=== PATIENT | female | born 1960 | race Caucasian/White ===

== ENCOUNTER 2020-07-14 13:17 | Outpatient (REF) | payer MEDICAID, SELFPAY ==
[2020-07-14 16:39] LABS: MANUAL DIFF FLAG NO
[2020-07-14 16:41] LABS: Basophils Absolute Auto 0.1 X10*3/uL (0.0-0.2); Basophils Percent Auto 0.8 % (0-2); Eosinophils Absolute Auto 0.1 X10*3/uL (0.0-0.4); Eosinophils Percent Auto 1.2 % (0-4); Hematocrit 46.3 % (37-47); Hemoglobin 14.9 g/dl (12.0-16.0); Imm Gran Abs Auto 0.02 X10*3/uL (0.00-0.03); Imm Gran Pct Auto 0.3 % (0.0-0.4); Lymphocytes Absolute Auto 1.7 X10*3/uL (1.2-4.9); Lymphocytes Percent Auto 28.3 % (20-40); Mean Corpuscular HGB Conc 32.2 g/dl (31.0-35.0); Mean Corpuscular Hemoglobin 30.5 pg (27.0-33.0); Mean Corpuscular Volume 94.9 fL (80-98); Mean Platelet Volume 9.5 fL (9.4-12.3); Monocytes Absolute Auto 0.5 X10*3/uL (0.1-1.2); Monocytes Percent Auto 8.8 % (2-11); Neutrophils Absolute Auto 3.6 X10*3/uL (2.0-8.3); Neutrophils Percent Auto 60.6 % (45-73); Platelet Count 305 X10*3/uL (160-400); Red Blood Count 4.88 X10*6/uL (4.20-5.50); Red Cell Distribution Width 12.4 % (11.0-16.0)
[2020-07-14 17:08] LABS: Alanine Aminotransferase 14 U/L (0-31); Albumin Level 4.3 g/dL (3.5-5.0); Alkaline Phosphatase 69 U/L (39-117); Anion Gap 12 (12-20); Aspartate Amino Transferase 16 U/L (5-31); Bilirubin Total 0.4 mg/dL (0.0-1.0); Blood Urea Nitrogen 14 mg/dL (9-16); Carbon Dioxide 34 mmol/L (22-29); Chloride 100 mmol/L (96-108); Cholesterol 230 mg/dL; Estimated Glomerular Filt Rate > 60; Glucose Fasting 87 mg/dL (60-99); HDL Cholesterol 64 mg/dL; LDL Cholesterol Calculated 147 mg/dl; Potassium 4.2 mmol/l (3.3-5.1); Sodium 142 mmol/L (135-145); Total Protein 6.5 g/dL (6.5-8.0); Triglycerides 95 mg/dL
== END 2020-07-14 13:18 | disposition home or self-care (01) ==
LOC: HO.HMGCLDS 13:17
PROVIDERS: PCP Internal Medicine; Visit Provider Internal Medicine
DX: E78.00 Pure hypercholesterolemia, unspecified (principal); F31.9 Bipolar disorder, unspecified
CPT/HCPCS: 36415; 80053; 80061; 85025

== ENCOUNTER 2020-08-14 08:05 | Day surgery (SDC) | payer MEDICAID, SELFPAY ==
[2020-08-01 18:57] VITALS: BMI 20.5
--- NOTE | 2020-08-07 14:24 | HO.ANESPROP2 ---
Documented by User: Emerita Abreu 08/07/20 14:25 HPI - Anesthesia Eval Consult details Narrative: 60yo F for Colonoscopy PMFSH Past Medical History Medical History Anxiety Bipolar 1 disorder Depression High cholesterol Hx of hepatitis C Hypertension Surgical History Surgical History History of History of cholecystectomy Hx of left breast biopsy Social History Social History Smoking Status: Current every day smoker Packs Per Day: 0.5 Cigarettes Per Day: 10.0 Years Smoked: 30 Smoked in Last 30 Days: Yes Patient Given Instructions on How to Stop Smoking: Yes Date Education Initiated: 08/01/20 Second Hand Smoke Exposure: No Use of substances other than those prescribed or required for medical reasons: No Substance Use Type Other:: HX METHADONE-2 YEARS OFF Advance Directives: No Advance Directives Information Provided: No Advance Directives on File: No Recently lost weight without trying: No Meds Allergies Allergy/AdvReac Type Severity Reaction Status Date / Time codeine [CODEINE] Allergy Intermediate HIVES Verified 08/14/20 08:16 Home Medications Medication Instructions Recorded Confirmed Type atorvastatin 80 mg PO BEDTIME 08/02/20 08/02/20 History fluoxetine 60 mg PO DAILY 08/02/20 08/02/20 History ibuprofen 600 mg PO Q6H PRN 08/02/20 08/02/20 History nicotine 1 patch TRANSDERMAL Q24H 08/02/20 08/02/20 History prazosin 1 mg PO BEDTIME 08/02/20 08/02/20 History quetiapine 200 mg PO BEDTIME 08/02/20 08/02/20 History Exam Exam Date and Time: August 07, 2020 1424 Height,Weight and Vital Signs: Height 5 ft 2 in Weight 50.802 kg Pertinent Lab Results Pertinent Lab Results: Laboratory Tests 07/14/20 07/14/20 13:30 13:30 WBC 6.0 Hgb 14.9 Hct 46.3 Plt Count 305 Sodium 142 Potassium 4.2 Chloride 100 Carbon Dioxide 34 H BUN 14 Creatinine 0.74 Assessment and Plan Assessment Anesthesia Assessment: Chart Reviewed Documented by User: Charlie Colin 08/14/20 09:03 PMFSH Past Medical History Medical History Anxiety Bipolar 1 disorder Depression High cholesterol Hx of hepatitis C Hypertension Surgical History Surgical History History of History of cholecystectomy Hx of left breast biopsy Social History Social History Smoking Status: Current every day smoker Packs Per Day: 0.5 Cigarettes Per Day: 10.0 Years Smoked: 30 Smoked in Last 30 Days: Yes Patient Given Instructions on How to Stop Smoking: Yes Date Education Initiated: 08/01/20 Second Hand Smoke Exposure: No Use of substances other than those prescribed or required for medical reasons: No Substance Use Type Other:: HX METHADONE-2 YEARS OFF Advance Directives: No Advance Directives Information Provided: No Advance Directives on File: No Recently lost weight without trying: No Meds Allergies Allergy/AdvReac Type Severity Reaction Status Date / Time codeine [CODEINE] Allergy Intermediate HIVES Verified 08/14/20 08:16 Home Medications Medication Instructions Recorded Confirmed Type atorvastatin 80 mg PO BEDTIME 08/02/20 08/02/20 History fluoxetine 60 mg PO DAILY 08/02/20 08/02/20 History ibuprofen 600 mg PO Q6H PRN 08/02/20 08/02/20 History nicotine 1 patch TRANSDERMAL Q24H 08/02/20 08/02/20 History prazosin 1 mg PO BEDTIME 08/02/20 08/02/20 History quetiapine 200 mg PO BEDTIME 08/02/20 08/02/20 History
[2020-08-14 08:19] VITALS: BP 131/90; PULSE 79; RESP 18; TEMP 36.6; O2SAT 96
[2020-08-14] MEDS: Lactated Ringers 1,000 ML 100 ML IVCONT (08:36)
--- NOTE | 2020-08-14 09:17 | HO.ANESPROP2 ---
[facility] Past Medical History Medical History Anxiety Bipolar 1 disorder Depression High cholesterol Hx of hepatitis C Hypertension Surgical History Surgical History History of History of cholecystectomy Hx of left breast biopsy Social History Social History Smoking Status: Current every day smoker Packs Per Day: 0.5 Cigarettes Per Day: 10.0 Years Smoked: 30 Smoked in Last 30 Days: Yes Patient Given Instructions on How to Stop Smoking: Yes Date Education Initiated: 08/01/20 Second Hand Smoke Exposure: No Use of substances other than those prescribed or required for medical reasons: No Substance Use Type Other:: HX METHADONE-2 YEARS OFF Advance Directives: No Advance Directives Information Provided: No Advance Directives on File: No Recently lost weight without trying: No Meds Allergies Allergy/AdvReac Type Severity Reaction Status Date / Time codeine [CODEINE] Allergy Intermediate HIVES Verified 08/14/20 08:16 Home Medications Medication Instructions Recorded Confirmed Type atorvastatin 80 mg PO BEDTIME 08/02/20 08/02/20 History fluoxetine 60 mg PO DAILY 08/02/20 08/02/20 History ibuprofen 600 mg PO Q6H PRN 08/02/20 08/02/20 History nicotine 1 patch TRANSDERMAL Q24H 08/02/20 08/02/20 History prazosin 1 mg PO BEDTIME 08/02/20 08/02/20 History quetiapine 200 mg PO BEDTIME 08/02/20 08/02/20 History Exam Exam Date and Time: August 14, 2020 0917 Height,Weight and Vital Signs: Height 5 ft 2 in Weight 50.802 kg Last Vital Signs Temp 97.8 F 08/14/20 08:19 Pulse 79 08/14/20 08:19 Resp 18 08/14/20 08:19 BP 131/90 H 08/14/20 08:19 Pulse Ox 96 08/14/20 08:19 Airway Mallampati Class: III Neck ROM: Full Denture: Upper and Lower Heart: [id number] Lungs: ct b/l Assessment and Plan Assessment Anesthesia Assessment: Anesthesia Plan Discussed and Chart Reviewed Final Anesthetic Review NPO: Yes ASA Class: III Final Preanesthetic Review: No Changes in Pt Med Stat, Meds/Allgs Chart Reviewed, Consent Obtained/Reviewed and Anes Risks/Benef Reviewed Patient Risk: Low Procedure Risk: Low Assessment/Block/Sedation in SS: Assess/Block/Sedation-SS Anesthetic Plan Anesthetic Plan: MAC: Disposition: Standard PACU
[2020-08-14 10:15] VITALS: BP 105/72; PULSE 71; RESP 16; TEMP 36.1; O2SAT 99
--- NOTE | 2020-08-14 10:16 | PM.OP ---
Brief Operative Note Date of Service: 08/14/20 Pre-op diagnosis: Screening Post-op diagnosis: other (Colon polyp) Procedure: Colonoscopy to cecum and TI with biopsy and removal of polyp Surgeon: Pritesh Sweet Anesthesia: MAC Estimated blood loss (mL): 2.0 Pathology: other (A. Rectal polyp) Condition: stable Disposition: PACU
[2020-08-14 10:31] VITALS: BP 155/87; PULSE 61; RESP 16; TEMP 36.1; O2SAT 99
--- NOTE | 2020-08-14 10:56 | HO.POSTANES ---
Post Anesthesia Evaluation Post Anesthesia Evaluation Vital Signs: Vital Signs Temp Pulse Resp BP Pulse Ox 08/14/20 10:31 97 F 61 16 155/87 H 99 08/14/20 10:15 97 F 71 16 105/72 99 08/14/20 08:19 97.8 F 79 18 131/90 H 96 Anesthesia: Monitored Mental Status: Awake Pain Control: Satisfactory Nausea/Vomiting: None Hydration: Adequate Anesthesia-Related Issues: No Anes. Related Issues
--- NOTE | 2020-08-14 11:14 | OP_ITS ---
SURGEON: Pritesh Sweet MD INDICATIONS: The patient presents for evaluation of colorectal cancer screening. Full consent has been obtained from her for this, including risks of bleeding and perforation. PREOPERATIVE DIAGNOSIS: Colorectal cancer screening. POSTOPERATIVE DIAGNOSIS: PROCEDURE PERFORMED: Colonoscopy to cecum and terminal ileum with biopsy and removal of polyp. ESTIMATED BLOOD LOSS: COMPLICATIONS: ANESTHESIA: Monitored anesthesia care. ASSISTANTS: SPECIMENS: POSTOPERATIVE DIAGNOSES: Colorectal cancer screening, small rectal polyp, diverticulosis and internal hemorrhoids. DESCRIPTION OF PROCEDURE: The patient was placed in the left lateral decubitus position. The digital rectal exam revealed no abnormalities. The Olympus video pediatric colonoscope was entered into the rectum, advanced easily to the cecum. Once in the cecum, I identified normal-appearing cecal pouch with appendiceal orifice and a normal-appearing ileocecal valve. The terminal ileum was cannulated and appeared normal. The scope was withdrawn back in the colon. The entire cecum and ileocecal valve appeared normal. Scope was then slowly withdrawn assessing all mucosal surfaces carefully. Preparation was excellent. There was a mild amount of sigmoid diverticulosis. I did not visualize any sign of colitis nor angiodysplasia. The only polyp I visualized was a small approximately 4 mm polyp in the rectum, which was biopsied and completely removed with cold biopsy forceps. The scope was retroflexed visualizing small internal hemorrhoids, but no other pathology. The rectal mucosa otherwise appeared normal. The scope was straightened and withdrawn from the patient. She tolerated the procedure well and was returned to recovery area in stable condition. IMPRESSION: 1. Small rectal polyp, status post biopsy removal. 2. Diverticulosis. 3. Internal hemorrhoids. PLAN: The results of the pathology will be checked. If this is a tubular adenoma, I would recommend a followup colonoscopy in 5 years. If it is only hyperplastic, I would recommend a followup colonoscopy in 10 years. She will otherwise see me on a p.r.n. basis. Of note, recent laboratories again showed a nondetectable hepatitis C viral load, normal LFTs, and a normal ultrasound of the liver. This has been discussed with her family. MD ROBERT Hall/MICHELLE / [id number]
== END 2020-08-14 11:20 | disposition home or self-care (01) ==
PROVIDERS: PCP Internal Medicine; Visit Provider Internal Medicine
PROC: 0DJD8ZZ Inspection of Lower Intestinal Tract, Via Natural or Artificial Opening Endoscopic (ICD-10-PCS; CPT 45378; principal; 2020-08-14 09:30)
DX: Z12.11 Encounter for screening for malignant neoplasm of colon (principal); D12.8 Benign neoplasm of rectum; K57.30 Diverticulosis of large intestine without perforation or abscess without bleeding; K64.8 Other hemorrhoids; I10 Essential (primary) hypertension; F31.9 Bipolar disorder, unspecified; R76.8 Other specified abnormal immunological findings in serum; Z86.19 Personal history of other infectious and parasitic diseases; F17.210 Nicotine dependence, cigarettes, uncomplicated; Z90.49 Acquired absence of other specified parts of digestive tract; Z79.899 Other long term (current) drug therapy; Z88.8 Allergy status to other drugs, medicaments and biological substances
CPT/HCPCS: 45380; 88305

== ENCOUNTER 2020-08-19 08:04 | Outpatient (REF) | payer MEDICAID, SELFPAY ==
--- NOTE | 2020-08-19 08:08 | MM_ITS ---
EXAMINATION: MM SCREENING DIGITAL BREAST TOMOSYNTHESIS, BILATERAL CLINICAL INFORMATION: Screening. Asymptomatic. The lifetime risk of breast cancer based on the Tyrer-Cuzick Model is 15%. COMPARISON: Mammography: 03/15/2019, 06/04/2018, 06/01/2018, 04/27/2018 TECHNIQUE: Digital breast tomosynthesis is performed in both the craniocaudal and mediolateral oblique views along with computer-aided detection (CAD). Synthesized 2D images are generated from the tomosynthesis. FINDINGS: The breasts are heterogeneously dense, which may obscure small masses (ACR BI-RADS breast composition Category c). There is no significant mass or architectural abnormality. There is biopsy clip marker again seen anterior upper outer left breast. There are no interval suspicious calcifications on either side. The axilla and skin contours are unremarkable. MM/MM tomosynthesis screening BI IMPRESSION: No mammographic evidence of malignancy. ASSESSMENT: BI-RADS 2: Benign RECOMMENDATION: Routine annual mammography screening. This patient's information was entered into a reminder system with a target due date for their next mammogram.
== END 2020-08-19 08:05 | disposition home or self-care (01) ==
LOC: HO.MAMMO 08:04
PROVIDERS: PCP Internal Medicine; Visit Provider Internal Medicine
DX: Z12.31 Encounter for screening mammogram for malignant neoplasm of breast (principal)
CPT/HCPCS: 77063; 77067

== ENCOUNTER 2022-09-04 13:26 | Outpatient (REF) | payer MEDICAID, SELFPAY ==
[2022-09-04 13:38] LABS: MANUAL DIFF FLAG NO
[2022-09-04 14:11] LABS: Basophils Percent Auto 0.7 % (0-2); Eosinophils Absolute Auto 0.1 X10*3/uL (0.0-0.4); Eosinophils Percent Auto 1.4 % (0-4); Hematocrit 49.9 % (37.0-47.0); Hemoglobin 16.2 g/dl (12.0-16.0); Imm Gran Abs Auto 0.01 X10*3/uL (0.00-0.03); Imm Gran Pct Auto 0.2 % (0.0-0.4); Lymphocytes Absolute Auto 1.8 X10*3/uL (1.2-4.9); Lymphocytes Percent Auto 31.8 % (20-40); Mean Corpuscular HGB Conc 32.5 g/dl (31.0-35.0); Mean Corpuscular Volume 95.4 fL (80.0-98.0); Mean Platelet Volume 9.3 fL (9.4-12.3); Monocytes Absolute Auto 0.6 X10*3/uL (0.1-1.2); Monocytes Percent Auto 11.2 % (2-11); Neutrophils Absolute Auto 3.1 x10*3/uL (2.0-8.3); Neutrophils Percent Auto 54.7 % (45-73); Platelet Count 291 X10*3/uL (160-400); Red Blood Count 5.23 X10*6/uL (4.20-5.50); Red Cell Distribution Width 12.2 % (11.0-16.0); White Blood Count 5.7 X10*3/uL (4.8-10.8)
[2022-09-04 14:51] LABS: Alanine Aminotransferase 11 U/L (0-31); Albumin Level 4.3 g/dL (3.5-5.0); Alkaline Phosphatase 74 U/L (39-117); Anion Gap 15 (12-20); Aspartate Amino Transferase 20 U/L (5-31); Bilirubin Total 0.4 mg/dL (0.0-1.0); Blood Urea Nitrogen 17 mg/dL (9-16); Calcium 9.2 mg/dL (8.4-10.2); Carbon Dioxide 30 mmol/L (22-29); Chloride 101 mmol/L (96-108); Cholesterol 237 mg/dL; Estimated Glomerular Filt Rate > 60; Glucose Random 84 mg/dL (60-115); HDL Cholesterol 63 mg/dL; LDL Cholesterol Calculated 145 mg/dl; Potassium 4.7 mmol/L (3.3-5.1); Sodium 141 mmol/L (135-145); Total Protein 6.6 g/dL (6.5-8.0); Triglycerides 145 mg/dL
[2022-09-06 07:18] LABS: HCV Log PCR <1.18 NOT DETECTED Log IU/mL (NOT DETECTED); HepC Viral Load <15 NOT DETECTED IU/mL (NOT DETECTED)
== END 2022-09-04 13:27 | disposition home or self-care (01) ==
LOC: HO.LAB 13:26
PROVIDERS: Visit Provider Internal Medicine
DX: Z00.00 Encounter for general adult medical examination without abnormal findings (principal); B18.2 Chronic viral hepatitis C; E78.00 Pure hypercholesterolemia, unspecified; F31.9 Bipolar disorder, unspecified; J30.89 Other allergic rhinitis
CPT/HCPCS: 36415; 80053; 80061; 85025; 87522

== ENCOUNTER 2022-10-05 08:09 | Outpatient (REF) | payer MEDICAID, SELFPAY ==
--- NOTE | ~2022-10-05 | MM_ITS ---
EXAMINATION: MM SCREENING DIGITAL BREAST TOMOSYNTHESIS, BILATERAL CLINICAL INFORMATION: Screening. Asymptomatic. Family history breast cancer, mother. The lifetime risk of breast cancer based on the Tyrer-Cuzick Model is 14%. COMPARISON: Mammography: 08/19/2020, 03/15/2019, 06/04/2018, 06/01/2018, 04/27/2018 TECHNIQUE: Digital breast tomosynthesis is performed in both the craniocaudal and mediolateral oblique views along with computer-aided detection (CAD). Synthesized 2D images are generated from the tomosynthesis. FINDINGS: The breasts are heterogeneously dense, which may obscure small masses (ACR BI-RADS breast composition Category c). There are no significant masses, abnormal calcifications, or other abnormalities. No architectural abnormality or developing density or significant change from prior studies. Biopsy clip marker again noted anterior upper outer left breast. The axilla are unremarkable. MM/MM tomosynthesis screening BI IMPRESSION: No mammographic evidence of malignancy. ASSESSMENT: BI-RADS 1: Negative RECOMMENDATION: Routine annual mammography screening. This patient's information was entered into a reminder system with a target due date for their next mammogram.
== END 2022-10-05 08:10 | disposition home or self-care (01) ==
LOC: HO.MAMMO 08:09
PROVIDERS: PCP Internal Medicine; Visit Provider Internal Medicine
DX: Z12.31 Encounter for screening mammogram for malignant neoplasm of breast (principal)
CPT/HCPCS: 77063; 77067

== ENCOUNTER 2023-11-24 10:27 | Outpatient (REF) | payer MEDICAID, SELFPAY ==
[2023-11-24 10:45] LABS: MANUAL DIFF FLAG NO
[2023-11-24 11:29] LABS: Basophils Percent Auto 0.6 % (0-2); Eosinophils Absolute Auto 0.1 X10*3/uL (0.0-0.4); Eosinophils Percent Auto 1.7 % (0-4); Hematocrit 48.1 % (37.0-47.0); Hemoglobin 15.5 g/dl (12.0-16.0); Imm Gran Abs Auto 0.02 X10*3/uL (0.00-0.03); Imm Gran Pct Auto 0.4 % (0.0-0.4); Lymphocytes Absolute Auto 1.2 X10*3/uL (1.2-4.9); Mean Corpuscular HGB Conc 32.2 g/dl (31.0-35.0); Mean Corpuscular Hemoglobin 30.9 pg (27.0-33.0); Mean Corpuscular Volume 95.8 fL (80.0-98.0); Mean Platelet Volume 8.9 fL (9.4-12.3); Monocytes Absolute Auto 0.4 X10*3/uL (0.1-1.2); Monocytes Percent Auto 8.9 % (2-11); Neutrophils Absolute Auto 3.1 x10*3/uL (2.0-8.3); Neutrophils Percent Auto 63.4 % (45-73); Platelet Count 268 X10*3/uL (160-400); Red Blood Count 5.02 X10*6/uL (4.20-5.50); Red Cell Distribution Width 12.4 % (11.0-16.0); White Blood Count 4.8 X10*3/uL (4.8-10.8)
[2023-11-24 12:26] LABS: Alanine Aminotransferase 12 U/L (0-31); Alkaline Phosphatase 69 U/L (39-117); Anion Gap 11 (12-20); Aspartate Amino Transferase 12 U/L (5-31); Bilirubin Total 0.3 mg/dL (0.0-1.0); Blood Urea Nitrogen 11 mg/dL (9-16); Calcium 9.1 mg/dL (8.4-10.2); Carbon Dioxide 33 mmol/L (22-29); Chloride 102 mmol/L (96-108); Cholesterol 243 mg/dL (<200); Estimated Glomerular Filt Rate > 60; HDL Cholesterol 70 mg/dL (>40); LDL Cholesterol Calculated 151 mg/dL (<100); Sodium 142 mmol/L (135-145); Total Protein 6.5 g/dL (6.5-8.0); Triglycerides 111 mg/dL (<150)
[2023-11-24 12:35] LABS: Thyroid Stimulating Hormone 0.99 uIU/mL (0.32-4.0)
[2023-11-24 12:57] LABS: Glucose Random 50 mg/dL (60-115)
== END 2023-11-24 10:28 | disposition home or self-care (01) ==
LOC: HO.LAB 10:27
PROVIDERS: PCP Internal Medicine; Visit Provider Internal Medicine
DX: Z00.00 Encounter for general adult medical examination without abnormal findings (principal); E78.00 Pure hypercholesterolemia, unspecified; F31.9 Bipolar disorder, unspecified; H81.11 Benign paroxysmal vertigo, right ear; I10 Essential (primary) hypertension; Z72.0 Tobacco use
CPT/HCPCS: 36415; 80053; 80061; 84443; 85025

== ENCOUNTER 2024-03-30 10:39 | Outpatient (REF) | payer MEDICAID, SELFPAY ==
[2024-03-30 13:04] LABS: MANUAL DIFF FLAG NO
[2024-03-30 13:11] LABS: Basophils Absolute Auto 0.1 X10*3/uL (0.0-0.2); Basophils Percent Auto 1.2 % (0-2); Eosinophils Percent Auto 0.9 % (0-4); Hematocrit 49.2 % (37.0-47.0); Hemoglobin 15.8 g/dl (12.0-16.0); Imm Gran Abs Auto 0.01 X10*3/uL (0.00-0.03); Imm Gran Pct Auto 0.2 % (0.0-0.4); Lymphocytes Absolute Auto 1.3 X10*3/uL (1.2-4.9); Lymphocytes Percent Auto 29.7 % (20-40); Mean Corpuscular HGB Conc 32.1 g/dl (31.0-35.0); Mean Corpuscular Hemoglobin 30.7 pg (27.0-33.0); Mean Corpuscular Volume 95.7 fL (80.0-98.0); Mean Platelet Volume 8.7 fL (9.4-12.3); Monocytes Absolute Auto 0.4 X10*3/uL (0.1-1.2); Monocytes Percent Auto 9.3 % (2-11); Neutrophils Absolute Auto 2.5 x10*3/uL (2.0-8.3); Neutrophils Percent Auto 58.7 % (45-73); Platelet Count 226 X10*3/uL (160-400); Red Blood Count 5.14 X10*6/uL (4.20-5.50); Red Cell Distribution Width 12.7 % (11.0-16.0); White Blood Count 4.3 X10*3/uL (4.8-10.8)
[2024-03-30 13:18] LABS: INTERNATIONAL NORM RATIO 0.9 (0.9-1.1); Prothrombin Time 10.8 SEC (11.1-13.3)
[2024-03-30 13:36] LABS: Alanine Aminotransferase 15 U/L (0-31); Albumin Level 4.2 g/dL (3.5-5.0); Alkaline Phosphatase 59 U/L (39-117); Aspartate Amino Transferase 18 U/L (5-31); Bilirubin Direct 0.1 mg/dL (0.0-0.5); Bilirubin Total 0.4 mg/dL (0.0-1.0); Total Protein 6.7 g/dL (6.5-8.0)
[2024-03-31 10:52] LABS: Immunoglobulin A 186 mg/dL (70-320)
[2024-03-31 20:53] LABS: Gliadin Deamidated IgA Ab <1.0 U/mL; Gliadin Deamidated IgG Ab <1.0 U/mL
[2024-04-01 06:48] LABS: Transglutaminase Ab IgG <1.0 U/mL; Transglutaminase IgA <1.0 U/mL
[2024-04-01 12:18] LABS: Alpha Fetoprotein 2.6 ng/mL
[2024-04-02 10:28] LABS: HCV Log PCR <1.18 NOT DETECTED Log IU/mL (NOT DETECTED); HepC Viral Load <15 NOT DETECTED IU/mL (NOT DETECTED)
[2024-04-07 01:24] LABS: FIB-ALT 14 U/L (6-29); FIB-Alpha-2-Macroglobulin 363 mg/dL (106-279); FIB-Apolipoprotein A1 186 mg/dL (101-198); FIB-GGT 9 U/L (3-65); FIB-Haptoglobin 140 mg/dL (43-212); FIB-Total Bilirubin 0.4 mg/dL (0.2-1.2); Liver Fibrosis Score 0.22; Liver Fibrosis Stage F0-F1; Nec Inflam Act Grade A0; Nec Inflam Act Score 0.04
[2024-04-11 14:34] LABS: Endomysial IgA Antibody Negative (Negative)
== END 2024-03-30 10:40 | disposition home or self-care (01) ==
LOC: HO.10HDL 10:39
PROVIDERS: Visit Provider Internal Medicine
DX: R63.4 Abnormal weight loss (principal); Z86.19 Personal history of other infectious and parasitic diseases; K52.9 Noninfective gastroenteritis and colitis, unspecified
CPT/HCPCS: 36415; 80076; 81596; 82105; 82784; 85025; 85610; 86231; 86258; 86364; 87522

== ENCOUNTER 2024-12-20 12:01 | Outpatient (REF) | payer MEDICAID, SELFPAY ==
--- OUTSIDE RECORDS SUMMARY | 2024-12-20 12:37 | XMS_ITS ---
Author Organization [facility] Address [address] [place] [address] Care Team Providers Care Mailing Specialist Name Role Phone Katie Flynn Primary Care Provider Unavailab Pritesh Ambrose [phone] REASON FOR VISIT Patient presents today for Hep c Encounters Encounter Location Date Provider Diagnosis [facility] [address] [place] [address] 11/07/2023 Pritesh Sweet Plan Of Treatment No Information Progress Notes * LILIA JOSEPHDOB:1960 (64 yo F)Acc No.[id number]:11/07/2023 Progress Notes Patient:?LILIA JOSEPH Provider:?Pritesh Sweet MD :1960???Age:63 Y???Sex:Female D ate:11/07/2023 Address[address] [id number] Pcp:Katie Flynn Subjective: * Chief Complaints: * ???1. Patient presents today for Hep c. * Medical History:? Objective: * Vitals:? Assessment: Plan: * Treatment: * * The named appointment provid er may or may not be the originator of this progress note, and it is not deemed complete until electronically signed by the appointment provider. Sign off status: Pending * Provider:?Pritesh Sweet MD Date:? 024 Generated for Printi ng/Faxing/eTransmitting on:?12/20/2024 12:37 PM EDT
--- OUTSIDE RECORDS SUMMARY | 2024-12-20 12:37 | XMS_ITS | Patient Health Record ---
Author Organization [facility] Address [address] [place] [address] Care Team Providers Care Powder Worker Name Role Phone Katie Flynn Primary Care Provider Pritesh Ellis Unavailable [phone] Allergies Allergen (clinical drug ingredient) Drug/Non Drug Allergy documented on EMR Reaction Allergy Type Onset Date Status codeine Codeine Sulfate Unknown Drug Allergy A ctive Results Component Value Reference Range Notes Prothrombin Time INR Reviewed date:03/30/2024 01:40:48 PM Interpretation: Performing Lab:[address] [address] Notes/Report: Prothrombin Time 10.8 11.1-13.3 SEC INTERNATIONAL NORM RATIO 0.9 0.9-1.1 INTERNATIONAL NORMALIZED RATIO (INR) REFERENCE RANGES Reference Range For patients not on anticoagulant therapy: 0.9 - 1.1 INR ranges for oral anticoagulant therapy: For prevention and treatment of venous thrombosis and pulmonary embolism: 2.0 - 3.0 For acute myocardial infarction with aspirin therapy: 2.0 - 3.0 For acute myocardial infarction without aspirin therapy: 3.0 - 4.0 For patients with mechanical prosthetic heart valves: 2.5 - 3.5 Complete Blood Count Auto Di ff Reviewed date:03/30/2024 01:42:42 PM Interpretation: Performing Lab:[address] [phone] Notes/Report: White Blood Count 4.3 4.8-10.8 X10*3/uL Red Blood Count 5.14 4.20-5.50 X10*6/uL Hemoglobin 15.8 12.0-16.0 g/dl Hematocrit 49.2 37.0-47.0 % Mean Corpuscular Volume 95.7 80.0-98.0 fL Mean Corpuscular Hemoglobin 30.7 27.0-33.0 pg Mean Corpuscular HGB Conc 32.1 31.0-35.0 g/dl Red Cell Distribution Width 12.7 11.0-16.0 % Platelet Count 226 160-400 X10*3/uL Mean Platelet Volume 8.7 9.4-12.3 fL Neutrophils Percent Auto 58.7 45-73 % Imm Gran Pct Auto 0.2 0.0-0.4 % Lymphocytes Percent Auto 29.7 20-40 % Monocytes Percent Auto 9.3 2-11 % Eosinophils Percent Auto 0.9 0-4 % Basophils Percent Auto 1.2 0-2 % NRBC Pct Auto 0.0 0.0-0.2 /100WBC Neutrophils Absolute Auto 2.5 2.0-8.3 x10*3/u L Imm Gran Abs Auto 0.01 0.00-0.03 X10*3/uL Lymphocytes Absolute Auto 1.3 1.2-4.9 X10*3/u L Monocytes Absolute Auto 0.4 0.1-1.2 X10*3/uL Eosinophils Absolute Auto 0.0 0.0-0.4 X10*3/u L Basophils Absolute Auto 0.1 0.0-0.2 X10*3/uL NRBC Abs Auto 0.000 0.0-0.012 X10*3/uL Liver Panel Reviewed date:03/30/2024 01:41:09 PM Interpretation: Performing Lab:[address] [phone] Notes/Report: Bilirubin Total 0.4 0.0-1.0 mg/dL Bilirubin Direct 0.1 0.0-0.5 mg/dL Aspartate Amino Transferase 18 5-31 U/L Alanine Aminotransferase 15 0-31 U/L Total Protein 6.7 6.5-8.0 g/dL Albumin Level 4.2 3.5-5.0 g/dL Alkaline Phosphatase 59 39-117 U/L Alpha Fetoprotein Reviewed date:04/07/2024 05:16:04 PM Interpretation: Performing Lab:[address] [place] [address] Notes/Report: Alpha Fetoprotein 2.6 Reference Range: <6.1 The use of AFP as a tumor marker in females is not recommended. This test was performed using the [employer] chemiluminescent method. Values obtained from different assay methods cannot be used interchangeably. AFP levels, regardless of value, should not be interpreted as absolute evidence of the presence or absence of disease. THIS TEST WAS PERFORMED AT: [facility] [address] [place] [phone] ALANNAH BURCH MD Liver Fibrosis Pnl Reviewed date:04/07/2024 05:16:11 PM Interpretation: Performing Lab:[address] [phone] Notes/Report: Liver Fibrosis Score 0.22 Liver Fibrosis Stage F0-F1 Liver Fibrosis Interpretation SEE NOTE no fibrosis Fibro Test Score (f) Metavir Score f>=0 and f<=0.21 : F0 (no fibrosis) f>0.21 and f<=0.27 : F0-F1 (no fibrosis) f>0.27 and f<=0.31 : F1 (minimal fibrosis) f>0.31 and f<=0.48 : F1-F2 (minimal fibrosis) f>0.48 and f<=0.58 : F2 (moderate fibrosis) f>0.58 and f<=0.72 : F3 (advanced fibrosis) f>0.72 and f<=0.74 : F3-F4 (advanced fibrosis) f>0.74 and f<=1.00 : F4 (severe fibrosis) Nec Inflam Act Score 0.04 Nec Inflam Act Grade A0 Nec Inflam Act Interpretation SEE NOTE no activity ActiTest Score (a) Metavir Score a>=0 and a<=0.17 : A0 (no activity) a>0.17 and a<=0.29 : A0-A1 (no activity) a>0.29 and a<=0.36 : A1 (minimal activity) a>0.36 and a<=0.52 : A1-A2 (minimal activity) a>0.52 and a<=0.60 : A2 (significant activity) a>0.60 and a<=0.62 : A2-A3 (significant activity) a>0.62 and a<=1.00 : A3 (severe activity) GNA-Ybpjg-3-Macroglobulin 363 106-279 mg/dL FIB-Haptoglobin 140 43-212 mg/dL FIB-Apolipoprotein A1 186 101-198 mg/dL FIB-Total Bilirubin 0.4 0.2-1.2 mg/dL FIB-GGT 9 3-65 U/L FIB-ALT 14 6-29 U/L Reference ID [id number] Footnote SEE NOTE The reliability of results is dependent on compliance with the preanalytical and analytical conditions recommended by [facility]. The tests have to be deferred for: acute hemolysis, acute hepatitis, acute inflammation, extra hepatic cholestasis. The advice of a specialist should be sought for interpretation in chronic hemolysis and Gilbert's syndrome. The test interpretation is not validated in liver transplant patients. Isolated extreme values of one of the components should lead to caution in interpreting the results. In case of discordance between a biopsy result and a test, it is recommended to seek the advice of a specialist. The causes of these discordances could be due to a flaw of the test or to a flaw in the biopsy: i.e. a liver biopsy has a 33% variability rate for one fibrosis stage. FibroTest is interpretable for chronic hepatitis B and C, alcoholic and non alcoholic steatosis. ActiTest is interpretable for chronic hepatitis B and C. The performance characteristics have been determined by [facility]. It has not been cleared or approved by the U.S. Food and Drug Administration. Performance characteristics refer to the analytical performance of the test. [employer], the associated logo, [employer] and all associated [employer] nieto are the registered trademarks of [employer]. All third libertarian nieto - (R) and (TM) - are the property of their respective owners. (C) 0045-3966 [employer]. All rights reserved. THIS TEST WAS PERFORMED AT: [facility] [address] [place] [address] MATT RODRIGUEZ MD,PHD,KEY Immunoglobulin A Reviewed date:08/17/2024 11:08:32 PM Interpretation: Performing Lab:[facility] [place], [address] [place] [phone] Notes/Report: Immunoglobulin A 186 70-320 mg/dL THIS TEST WAS PERFORMED AT: [facility] [address] [place] [phone] ALANNAH BURCH MD Transglutaminase Ab IgG Reviewed date:04/16/2024 06:27:31 PM Interpretation: Performing Lab:[facility] [place], [address] [place] [phone] Notes/Report: Transglutaminase Ab IgG <1.0 Value Interpretation ----- <15.0 Antibody not detected > or = 15.0 Antibody detected THIS TEST WAS PERFORMED AT: [facility] [address] [place] [phone] ALANNAH BURCH MD Transglutaminase IgA Reviewed date:04/16/2024 06:27:39 PM Interpretation: Performing Lab:[facility] [place], [address] [place] [phone] Notes/Report: Transglutaminase IgA <1.0 Value Interpretation ----- <15.0 Antibody not detected > or = 15.0 Antibody detected THIS TEST WAS PERFORMED AT: [facility] [address] [place] [phone] ALANNAH BURCH MD Gliadin Ab Panel Reviewed date:04/16/2024 06:27:47 PM Interpretation: Performing Lab:[facility] [place], [address] [place] [phone] Notes/Report: Gliadin Deamidated IgA Ab <1.0 Value Interpretation ----- <15.0 Antibody not detected > or = 15.0 Antibody detected Gliadin Deamidated IgG Ab <1.0 Value Interpretation ----- <15.0 Antibody not detected > or = 15.0 Antibody detected THIS TEST WAS PERFORMED AT: [facility] [address] [place] [phone] ALANNAH BURCH MD Endomysial IgA rflx Titer Reviewed date:04/16/2024 06:27:56 PM Interpretation: Performing Lab:[facility] [place], [address] [place] [phone] Notes/Report: Endomysial IgA Antibody Negative Negative THIS TEST WAS PERFORMED AT: [facility] [phone] KG NEWTON MD,PHD Endomysial Titer TNP Hep C Viral Load Reviewed date:04/04/2024 04:53:07 PM Interpretation: Performing Lab:[facility] [place], [address] [place] [phone] Notes/Report: HepC Viral Load <15 NOT DETECTED NOT DETECTED IU/mL HCV Log PCR <1.18 NOT DETECTED NOT DETECTED Log IU/mL For additional information, please refer to http://education.AuctionPay/faq/FAQ22v 1 (This link is being provided for informational/ educational purposes only.) THIS TEST WAS PERFORMED AT: [facility] [address] [place] [phone] ALANNAH BURCH MD Reason For Referral Referring Provider First Name Katie Referring Provider Last Name Rina Referring Provider Speciality Internal M edicine Referred Organization [facility] Referred Provider Pritesh Sweet Referred Address [address] [place] [address],[address],[address], Referred Provider Specialty Gastroentero logy General Notes Priyanka Escobar 024 07:50:35 AM EDT > call Dr. Ladd's office to [facility] with Dr Sweet o [phone], Priyanka Escobar 02/04/2024 08:22:21 AM EDT > requested referral on voice mailbox Referral Priority Routine Medications Medication SIG (Take, Route, Frequency, Duration) Notes Start Date End Date Status FLUoxetine HCl 20 MG TAKE 3 CAPSULES PO QD Oral for 31 Active QUEtiapine Fumarate 200 MG TK 1 T PO QHS Oral for 30 Active Dicyclomine HCl 10 MG 1 or 2 capsules Or ally Use 1 or 2 every 6 hours as needed for abdominal cramps/discomfort/diarr hea. You can also take it before a meal to see if that will help prevent the episodes from occurring after the meal for 30 day(s) 03/30/2024 Active Prazosin HCl 1 MG TK ONE C PO QHS Oral for 30 Active lamoTRIgine 25 MG Oral for 30 Not-Taking Ezetimibe 10 MG TAKE 1 TABLET BY SANTINO TH DAILY Oral for 90 Active clonazePAM 0.5 MG Oral for 10 Active Rosuvastatin Calcium 40 MG TAKE 1 TABLET BY MOUTH AT BEDTIME Oral for 90 Active Immunizations Vaccine Route Administration Date Status Comme nts Influenza Unknown 08/11/2019 Administered Problems Problem Type SNOMED Code ICD Code Onset Dates Problem Status W/U Status Risk Notes Problem 346442789 Encounter for screening for malignant neoplasm of colon (Z12.11) Active confirmed Problem 596279230 Chronic hepatiti s C without hepatic coma (B18.2) Active confirmed Problem 89856688 Constipation, unspecified constipation type (K59.00) Active confirmed Problem History of hepatitis C (1715054647456 1) History of hepatitis C (Z86.19) Active confirmed Problem Chronic diarrhea (384416287) Chronic diarrhea (K52.9) Active confirmed Problem 768803149 Hepatitis C antibody positive in blood (R76.8) Active confirmed Problem Weight decreased (671377128) Loss of weight (R63.4) Active confirmed Vital Signs Blood pressure diastolic 00 mm Hg 03/30/2024 Height 62 in 03/30/2024 Blood pressure systolic 00 mm Hg 03/30/2024 Weight 102 lbs 03/30/2024 BMI 18.65 kg/m2 03/30/2024 Encounters Encounter Location Date Provider Diagnosis [facility] [address] [place] [phone] 03/30/2024 Pritesh Sweet Loss of weight R63.4 ; Chronic diarrhea K52.9 and History of hepatitis C Z86.19 [facility] [address] [place] [phone] 08/17/2024 Pritesh Sweet Assessments Encounter Date Diagnosis (ICD Code) Assessment Notes Treatment Notes Treatment Clinical Notes Section Notes 03/30/2024 Chronic diarrhea (ICD-10 - K52.9) Overall, I advised Lilia that I do feel her GI complaints are in relation to some underlying irritable bowel syndrome. We did review that stress and continued smoking can also contribute to some GI complaints and weight loss. I shall give her a prescription to try dicyclomine on a p.r.n. basis for abdominal cramps and loose stools. I shall check laboratories today for celiac disease serologies as well. We did review that she will be due for a followup colonoscopy in 2025. In regard to the positive hepatitis C antibody it does not appear that she has any underlying significant liver disease. Nonetheless, she is worried about that and was asking for some tests in regard to a hepatitis C viral load and abdominal ultrasound. She will be scheduled for those, as well as an alpha-fetoprotei n level and liver fibrosis score. If things remain stable I will see her in 2025 for her colonoscopy. I did advise her to contact me prior to that if she has any problems or questions I can be of assistance with. Lilia and Charlie were comfortable with this plan. Thank you again for allowing me to participate in Lilia's care. I shall continue to keep you advised of her progress. 03/30/2024 Loss of weight (ICD-10 - R63.4) Overall, I advised Lilia that I do feel her GI complaints are in relation to some underlying irritable bowel syndrome. We did review that stress and continued smoking can also contribute to some GI complaints and weight loss. I shall give her a prescription to try dicyclomine on a p.r.n. basis for abdominal cramps and loose stools. I shall check laboratories today for celiac disease serologies as well. We did review that she will be due for a followup colonoscopy in 2025. In regard to the positive hepatitis C antibody it does not appear that she has any underlying significant liver disease. Nonetheless, she is worried about that and was asking for some tests in regard to a hepatitis C viral load and abdominal ultrasound. She will be scheduled for those, as well as an alpha-fetoprotei n level and liver fibrosis score. If things remain stable I will see her in 2025 for her colonoscopy. I did advise her to contact me prior to that if she has any problems or questions I can be of assistance with. Lilia and Charlie were comfortable with this plan. Thank you again for allowing me to participate in Lilia's care. I shall continue to keep you advised of her progress. 03/30/2024 History of hepatitis C (ICD-10 - Z86.19) Overall, I advised Lilia that I do feel her GI complaints are in relation to some underlying irritable bowel syndrome. We did review that stress and continued smoking can also contribute to some GI complaints and weight loss. I shall give her a prescription to try dicyclomine on a p.r.n. basis for abdominal cramps and loose stools. I shall check laboratories today for celiac disease serologies as well. We did review that she will be due for a followup colonoscopy in 2025. In regard to the positive hepatitis C antibody it does not appear that she has any underlying significant liver disease. Nonetheless, she is worried about that and was asking for some tests in regard to a hepatitis C viral load and abdominal ultrasound. She will be scheduled for those, as well as an alpha-fetoprotei n level and liver fibrosis score. If things remain stable I will see her in 2025 for her colonoscopy. I did advise her to contact me prior to that if she has any problems or questions I can be of assistance with. Lilia and Charlie were comfortable with this plan. Thank you again for allowing me to participate in Lilia's care. I shall continue to keep you advised of her progress. 03/30/2024 Other Repeat colonoscopy in 2025 Overall, I advised Lilia that I do feel her GI complaints are in relation to some underlying irritable bowel syndrome. We did review that stress and continued smoking can also contribute to some GI complaints and weight loss. I shall give her a prescription to try dicyclomine on a p.r.n. basis for abdominal cramps and loose stools. I shall check laboratories today for celiac disease serologies as well. We did review that she will be due for a followup colonoscopy in 2025. In regard to the positive hepatitis C antibody it does not appear that she has any underlying significant liver disease. Nonetheless, she is worried about that and was asking for some tests in regard to a hepatitis C viral load and abdominal ultrasound. She will be scheduled for those, as well as an alpha-fetoprotei n level and liver fibrosis score. If things remain stable I will see her in 2025 for her colonoscopy. I did advise her to contact me prior to that if she has any problems or questions I can be of assistance with. Lilia and Charlie were comfortable with this plan. Thank you again for allowing me to participate in Lilia's care. I shall continue to keep you advised of her progress. Plan Of Treatment Pending Test Test Name Order Date LIVER PROFILE 05/16/2015 LIVER PROFILE 12/30/2019 LIVER PROFILE 03/30/2024 CBC w DIFF 03/30/2024 CBC w DIFF 12/30/2019 PROTHROMBIN TIME (PT, INR) 12/30/2019 ALPHA-FETOPROTEIN,TUMOR MARKER 0 ALPHA-FETOPROTEIN,TUMOR MARKER 4 CELIAC PANEL #10 03/30/2024 HEPATITIS C VIRAL LOAD 05/16/2015 HEPATITIS C VIRAL LOAD 03/30/2024 HCV LIVER FIBROSIS, FIBRO TEST 4 HCV LIVER FIBROSIS, FIBRO TEST 0 HCVVL REFLEX GENOTYPE REFLEX NS5A 2019 US abdomen comp w elastography 4 Future Test Test Name Order Date COLONOSCOPY 12/30/2019 Insurance Providers Payer Name Payer Address Payer Phone Subscriber Number Group Number Insured Name Patient Relationship to Insured Coverage Start Date Coverage End Date [employer] OF [place] [address] [place] [phone] [id number] LILIA JOSEPH Self - patient is the insured Medical (General) History Medical History History ICD Code Chronic hepatitis C--she had a positive hepatitis C antibody but negative hepatitis C viral load 2011--- she also had a normal liver profile, negative HIV test, and negative hepatitis B profile at that time as well. She had a nondetectable hepatitis C viral load and normal liver profile in June 2015, and her liver ultrasound was unremarkable other than some increased echogenicity. Bipoloar disorder/depression Denies VT,DM,CVA,Lung disease,renal dise ase Seasonal allergies HTN Stopped Methadone in 2016 Has refused colonoscopies as of the 12/2019 OV--describes neg Hemoccult cards in the past Colonoscopy 08/2020-1 small tubular adeno ma removed Surgical History Surgery Date(Month/Year) CCY 1982 x 3 Left breast biopsy-benign 2017
--- OUTSIDE RECORDS SUMMARY | 2024-12-20 12:37 | XMS_ITS ---
Author Organization [facility] Address [address] [place] [address] Care Team Providers Care Manufacturing Quality Technician Name Role Phone Katie Flynn Primary Care Provider Unavailab Pritesh Ambrose [phone] REASON FOR VISIT cancelled her ultrasound with [facility] [place] Encounters Encounter Location Date Provider Diagnosis [facility] [address] [place] [address] 08/17/2024 Pritesh Sweet Plan Of Treatment No Information Progress Notes * LILIA JOSEPHDOB:1960 (64 yo F)Acc No.[id number]:08/17/2024 Patient:?LILIA JOSEPH :1960???Age:64 Y???Sex:Female Address[address] [place], [address] * true * Date:? Generated for Louisei vanessa/Chaparro/eTransmitting on:?12/20/2024 12:37 PM EDT
--- OUTSIDE RECORDS SUMMARY | 2024-12-20 12:37 | XMS_ITS ---
Author Organization [facility] Address [address] [place] [address] Care Team Providers Care Window Caser Name Role Phone Rina Katie Primary Care Provider UnavailPritesh [place] Unavailable [phone] Allergies Allergen (clinical drug ingredient) Drug/Non Drug Allergy documented on EMR Reaction Allergy Type Onset Date Status codeine Codeine Sulfate Unknown Drug Allergy A ctive Results Component Value Reference Range Notes Prothrombin Time INR Reviewed date:03/30/2024 01:40:48 PM Interpretation: Performing Lab:[facility], [address] [place] [id number] Notes/Report: Prothrombin Time 10.8 11.1-13.3 SEC INTERNATIONAL [...] mechanical prosthetic heart valves: 2.5 - 3.5 REASON FOR VISIT Patient presents today for HEP C Medications Medication SIG (Take, Route, Frequency, Duration) Notes Start Date End Date Status Dicyclomine HCl 10 MG 1 or 2 capsules Or ally Use 1 or 2 every 6 hours as needed for abdominal cramps/discomfort/diarr hea. You can also take it before a meal to see if that will help prevent the episodes from occurring after the meal for 30 day(s) 03/30/2024 Active lamoTRIgine 25 MG Oral for 30 Not-Taking Ezetimibe 10 MG TAKE 1 TABLET BY SANTINO TH DAILY Oral for 90 Active clonazePAM 0.5 MG Oral for 10 Active Rosuvastatin Calcium 40 MG TAKE 1 TABLET BY MOUTH AT BEDTIME Oral for 90 Active FLUoxetine HCl 20 MG TAKE 3 CAPSULES PO QD Oral for 31 Active QUEtiapine Fumarate 200 MG TK 1 T PO QHS Oral for 30 Active Prazosin HCl 1 MG TK ONE C PO QHS Oral for 30 Active Problems Problem Type SNOMED Code ICD Code Onset Dates Problem Status W/U Status Risk Notes Problem Weight decreased (501004572) Loss of weight (R63.4) Active confirmed Problem History of hepatitis C (3658399652622 1) History of hepatitis C (Z86.19) Active confirmed Problem Chronic diarrhea (064877406) Chronic diarrhea (K52.9) Active confirmed Vital Signs Blood pressure systolic 00 mm Hg 03/30/20 24 Blood pressure diastolic 00 mm Hg 024 Height 62 in 03/30/2024 Weight 102 lbs 03/30/2024 BMI 18.65 kg/m2 03/30/2024 Encounters Encounter Location Date Provider Diagnosis [facility] [address] [place] [address] 03/30/2024 Pritesh Sweet Loss of weight R63.4 ; Chronic diarrhea K52.9 and History of hepatitis C Z86.19 Assessments Encounter Date Diagnosis (ICD Code) Assessment Notes Treatment Notes Treatment Clinical Notes Section Notes 03/30/2024 Loss of weight (ICD-10 - R63.4) [...] keep you advised of her progress. 03/30/2024 Chronic diarrhea (ICD-10 - K52.9) Overall, [...] advised of her progress. Plan Of Treatment Medication Medication Name Sig Start Date Stop Date Notes Dicyclomine HCl 10 MG 1 or 2 capsules Or ally Use 1 or 2 every 6 hours as needed for abdominal cramps/discomfort/diarrhea. You can also take it before a meal to see if that will help prevent the episodes from occurring after the meal for 30 day(s) 03/30/2024 Treatment Notes Assessment Notes Other Repeat colonoscopy i n 2025 Pending Test Test Name Order Date LIVER PROFILE 03/30/2024 CBC w DIFF 03/30/2024 ALPHA-FETOPROTEIN,TUMOR MARKER 4 CELIAC PANEL #10 03/30/2024 HEPATITIS C VIRAL LOAD 03/30/2024 HCV LIVER FIBROSIS, FIBRO TEST 4 US abdomen comp w elastography 4 Next Appt Details Follow Up: prn, Reason: Progress Notes * LILIA JOSEPHDOB:1960 (63 yo F)Acc No.[id number]:03/30/2024 Progress Notes Patient:?LILIA JOSEPH Provider:?Pritesh Sweet MD :1960???Age:63 Y???Sex:Female D ate:03/30/2024 [place] [id number] Pcp:Katie Flynn Subjective: * Chief Complaints: * ???Patient presents today fo r HEP C * HPI: ???incontinence:? I saw Lilia a consultation today in regard to further evaluation of her diarrhea, weight loss, history of a tubular adenoma of the colon, and positive hepatitis C antibody. She was accompanied by her significant other, Charlie. ?I last saw Lilia in August of 2020, at which time she underwent a screening colonoscopy with removal of a small tubular adenoma. There was no evidence of any inflammatory bowel disease. She reports that she has been having issues with some lower abdominal cramps and intermittent diarrhea. She has also lost about 10 pounds since she was here in 2019. She attributes some of her GI symptoms to stress but nonetheless is concerned about them. She describes a fairly good appetite and denies any nausea, vomiting, other abdominal pains besides the lower abdominal cramps, jaundice, hematochezia, or melena. She has about 2 cups of coffee per day and smokes almost a pack of cigarettes every day. She does not use any alcohol.She denies any known family history of inflammatory bowel disease, celiac disease, or GI malignancy. She tries to stay on a healthy diet and does not use much in the way of any dairy products. ?She is worried about her previous positive hepatitis C antibody although a hepatitis C viral load is been checked at least several times and has always been negative including the most recent one in 2019. ?Her last abdominal ultrasound in 2019 described A normal-appearing liver and no evidence of splenomegaly or ascites. Laboratory from earlier this year revealed a normal CBC with platelet count, normal chemistries and renal function, normal bowel he is, and a normal TSH. * ROS:?General/Constitutional:?Change in appetite?denies.?Chills?denies.?Fatigue?denies.?Ophthalmologic:?Comments?all negative.?ENT:?Comments?all negative.?Respiratory:?hemoptysis?denies.?Cough?denies.?Cardiovascular:?Chest pain?denies.?Orthopnea?denies.?Gastrointestinal:?Comments?See HPI for details.?Genitourinary:?Hematuria?denies.?Dysuria?denies.?Musculoskeletal:?Painful joints?denies.?Weakness?denies.?Skin:?Itching?denies.?Rash?denies.?Neurologic:?Headache?denies.?Seizures?denies.?Psychiatric:?Comments?Per [facility].? * Medical History:? * Surgical History:?CCY 1983C- section x 3 Left breast biopsy-benign 2017 * Hospitalization/Major Diagno stic Procedure:?No Hospitalization History. * Family History:?Father: dece ased, Cirrhosisof liver due to EtOH, diagnosed with Heart disease.?Mother: , breast cancer right breast, diagnosed with Heart disease.? No colorectal cancer. * Social History:?Tobacco Use:?Tobacco Use/Smoking?Are you a: current smoker , How often do you smoke cigarettes?: every day, How many cigarettes a day do you smoke?: 11-20, How soon after you wake up do you smoke your first cigarette?: 6-30 minutes, Are you interested in quitting?: Thinking about quitting.?Drugs/Alcohol:?Alcohol Screen?Points: 0, Interpretation: Negative.?Miscellaneous:?Marital status: single/ boyfriend of 27 years. Occupation: unemployed/social security/disabled. ???Smoker; no alcohol and no IVDA since 2008. * Medications:?TakingPrazosin HCl 1 MG Capsule TK ONE C PO QHS Oral FLUoxetine HCl 20 MG Capsule TAKE 3 CAPSULES PO QD Oral QUEtiapine Fumarate 200 MG Tablet TK 1 T PO QHS Oral Rosuvastatin Calcium 40 MG Tablet TAKE 1 TABLET BY MOUTH AT BEDTIME Oral Ezetimibe 10 MG Tablet TAKE 1 TABLET BY MOUTH DAILY Oral clonazePAM 0.5 MG Tablet Oral Taking Prazosin HCl 1 MG Capsule TK ONE C PO QHS Oral Taking FLUoxetine HCl 20 MG Capsule TAKE 3 CAPSULES PO QD Oral Taking QUEtiapine Fumarate 200 MG Tablet TK 1 T PO QHS Oral Taking Rosuvastatin Calcium 40 MG Tablet TAKE 1 TABLET BY MOUTH AT BEDTIME Oral Taking Ezetimibe 10 MG Tablet TAKE 1 TABLET BY MOUTH DAILY Oral Taking clonazePAM 0.5 MG Tablet Oral Not-Taking/PRNlamoTRIgine 25 MG Tablet Oral Not-Taking/PRN lamoTRIgine 25 MG Tablet Oral DiscontinuedAtorvastatin Calcium 80 MG Tablet TK 1 T PO HS Oral Nicotine 14 MG/24HR Patch 24 Hour Transdermal Ibuprofen 600 MG Tablet take 1 tablet by mouth every 6 hours if needed for headache Oral MiraLax (colon prep) 8.3 ounce ((238) grams mixed with Gatorade or Crystal Light orally begin at 5:00 p.m. the day before the procedureDulcolax (colon prep) 5 MG Tablet Delayed Release take at 3:00 p.m and 7:00p.m. Orally two tablets twice a day for one dayMedication List reviewed and reconciled with the patientDiscontinued Atorvastatin Calcium 80 MG Tablet TK 1 T PO HS Oral Discontinued Nicotine 14 MG/24HR Patch 24 Hour Transdermal Discontinued Ibuprofen 600 MG Tablet take 1 tablet by mouth every 6 hours if needed for headache Oral Discontinued MiraLax (colon prep) 8.3 ounce ((238) grams mixed with Gatorade or Crystal Light orally begin at 5:00 p.m. the day before the procedureDiscontinued Dulcolax (colon prep) 5 MG Tablet Delayed Release take at 3:00 p.m and 7:00p.m. Orally two tablets twice a day for one dayMedication List reviewed and reconciled with the patient * Allergies:?Codeine Sulfateye s[Allergies Verified] Objective: * Vitals:?Wt: 102 lbs, Ht: 62 in, BMI:18.65 Index, BP: 00/00 mm Hg. * Examination: ???General Examination: ?GENERAL APPEARANCE:?pleasant, thin, alert female in no acute distress.?EYES:?sclera non-icteric.?ORAL CAVITY:?mucosa moist.?NECK/THYROID:?no cervical lymphadenopathy, neck supple.?SKIN:?nonjaundiced, no spider angiomata.?HEART:?S1, S2 normal.?LUNGS:?clear to auscultation bilaterally.?ABDOMEN:?normal bowel sounds, no guarding or rigidity, no guarding or rigidity, no masses palpable, soft, nontender, nondistended.?EXTREMITIES:?no edema.?NEUROLOGIC:?alert and oriented.? Assessment: * Assessment: 1.?Chronic diarrhea - K52.9 (Primary)?2.?Loss of weight - R63.4?3.?History of hepatitis C - Z86.19? Overall, I advised Lilia that I do [...] scheduled for those, as well as an alpha-fetoprotein level and liver fibrosis score. If things [...] to keep you advised of her progress. Plan: * Treatment: ? Value Reference Range ?Prothrombin Time 10.8 L 11.1-1 3.3 - SEC * ?INTERNATIONAL NORM RATIO 0.9 0.9-1.1 - ?Imaging: US abdomen comp w elastography* sched for 04/01/24 at 9:00 [place] [facility] [place] 8 hrs priorREF# [id number] * 2.?Loss of weight?LAB: LIVER PROFILE ?LAB: CBC w DIFF ?LAB: ALPHA-FETOPROTEIN,TUMOR MARKER ?LAB: CELIAC PANEL #10 ?LAB: HEPATITIS C VIRAL LOAD ?LAB: HCV LIVER FIBROSIS, FIBRO TEST ?LAB: Prothrombin Time INR* ? Value Reference Range ?Prothrombin Time 10.8 L 11.1-1 3.3 - SEC * ?INTERNATIONAL NORM RATIO 0.9 0.9-1.1 - ?Imaging: US abdomen comp w elastography* sched for 04/01/24 at 9:00 am [facility] [place] 2nd floorfasting 8 hrs priorREF# [id number] * 3.?History of hepatitis C?LAB: LIVER PROFILE ?LAB: CBC w DIFF ?LAB: ALPHA-FETOPROTEIN,TUMOR MARKER ?LAB: HEPATITIS C VIRAL LOAD ?LAB: HCV LIVER FIBROSIS, FIBRO TEST ?LAB: Prothrombin Time INR* ? Value Reference Range ?Prothrombin Time 10.8 L 11.1-1 3.3 - SEC * ?INTERNATIONAL NORM RATIO 0.9 0.9-1.1 - ?Imaging: US abdomen comp w elastography* sched for 04/01/24 at 9:00 am [facility] [place] 2nd floorfasting 8 hrs priorREF# [id number] * 4.?Others? Notes: Repeat colonoscopy in 2025?? * Procedure Codes:?3017F COLOR ECTAL CA SCREEN DOC [id number] Pt scrn tbco and id as [id number] BP SCR NOT PRFRM REC REASON NOS * Follow Up:?prn * * Sign off status: Completed true * Provider:?Pritesh Sweet MD Date:? 024 Generated for Jose mendez/Chaparro/Quinnitting on:?12/20/2024 12:36 PM EDT History and Physical Notes * HPI (History of Present Illness) Category Sub-Category Detail Notes Category Not es incontinence I saw Lilia a consultation today in regard to further evaluation of her diarrhea, weight loss, history of a tubular adenoma of the colon, and positive hepatitis C antibody. She was accompanied by her significant other, Charlie. I last saw Lilia in August of 2020, at which time she underwent a screening colonoscopy with removal of a small tubular adenoma. There was no evidence of any inflammatory bowel disease. She reports that she has been having issues with some lower abdominal cramps and intermittent diarrhea. She has also lost about 10 pounds since she was here in 2019. She attributes some of her GI symptoms to stress but nonetheless is concerned about them. She describes a fairly good appetite and denies any nausea, vomiting, other abdominal pains besides the lower abdominal cramps, jaundice, hematochezia, or melena. She has about 2 cups of coffee per day and smokes almost a pack of cigarettes every day. She does not use any alcohol.She denies any known family history of inflammatory bowel disease, celiac disease, or GI malignancy. She tries to stay on a healthy diet and does not use much in the way of any dairy products. She is worried about her previous positive hepatitis C antibody although a hepatitis C viral load is been checked at least several times and has always been negative including the most recent one in 2020. Her last abdominal ultrasound in 2020 described A normal-appearing liver and no evidence of splenomegaly or ascites. Laboratory from earlier this year revealed a normal CBC with platelet count, normal chemistries and renal function, normal bowel he is, and a normal TSH. Examination Category Sub-Category Detail Notes Category Not es General Examination GENERAL APPEARANCE: pleasant , thin, alert female in no acute distress EYES: sclera non-icteric NECK/THYROID: no cervical lymphade nopathy, neck supple HEART: S1, S2 normal LUNGS: clear to auscultatio n bilaterally ABDOMEN: normal bowel sounds, no guarding or rigidity, no guarding or rigidity, no masses palpable, soft, nontender, nondistended NEUROLOGIC: alert and oriented SKIN: nonjaundiced, no spi carl angiomata EXTREMITIES: no edema ORAL CAVITY: mucosa moist
[2024-12-20 15:05] LABS: Alanine Aminotransferase 16 U/L (0-31); Alkaline Phosphatase 68 U/L (39-117); Anion Gap 13 (12-20); Aspartate Amino Transferase 20 U/L (5-31); Bilirubin Total 0.4 mg/dL (0.0-1.0); Blood Urea Nitrogen 10 mg/dL (9-16); Calcium 9.1 mg/dL (8.4-10.2); Carbon Dioxide 30 mmol/L (22-29); Chloride 102 mmol/L (96-108); Cholesterol 156 mg/dL (<200); Estimated Glomerular Filt Rate > 60; Glucose Random 70 mg/dL (60-115); HDL Cholesterol 57 mg/dL (>40); LDL Cholesterol Calculated 85 mg/dL (<100); Potassium 4.3 mmol/L (3.3-5.1); Sodium 141 mmol/L (135-145); Thyroid Stimulating Hormone 1.24 uIU/mL (0.32-4.0); Total Protein 6.6 g/dL (6.5-8.0); Triglycerides 72 mg/dL (<150)
== END 2024-12-20 12:02 | disposition home or self-care (01) ==
LOC: HO.10HDL 12:01
PROVIDERS: Visit Provider Internal Medicine
DX: Z00.00 Encounter for general adult medical examination without abnormal findings (principal); E78.00 Pure hypercholesterolemia, unspecified; I10 Essential (primary) hypertension; Z72.0 Tobacco use
CPT/HCPCS: 36415; 80053; 80061; 84443